=== PATIENT | female | born 1985 | race African-American/Black ===

== ENCOUNTER 2023-10-12 10:54 | Outpatient (AMB) | payer OTHER, SELFPAY ==
--- NOTE | 2023-10-12 10:57 | A.OFFPC_ITS ---
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 Patient has concern for L ear hearing. Patient has concern for anxiety due to work/life stresses. Patient feels overall she is healthy. 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 Required: No Accompanied by: Self / Same As Patient Allergies No Known Allergies Allergy (Verified 10/12/23 11:23) Medication List - Last Reconciled 10/12/23 by STUART Porter sumatriptan succinate take 1 tab at onset of headache; if no relief, may repeat 1 tab after at least 2 hrs; max = 2 tabs/24 hrs PO topiramate (Topamax) 100 mg PO BEDTIME Tobacco use date assessed: 10/12/23 Dental Screening Dental Screen Date: 10/12/23 Did you have a dental visit in the last 12 months?: Yes Did you have a dental problem in the last 6 months where you did not have access to dental care?: No Was dental information given to patient?: Patient has dentist HPI HPI Comments History of Present Illness Details Debra 38 y/o F with RANCHO, migraine headaches Surgery: right rotator and bicep repair 2022, tubal ligation Health Maintenance: Pap UTD 2023 Mammo Reports UTD on vaccines, 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 Feels startled and overwhelmed. Affecting her memory. Never been on meds or counseling but open to this. c/o P[place]ENTA bilat, worse on L PFSH Medical History (Updated 10/12/23 @ 15:26 by STUART Porter) Lumbar disc disorder Fibromyalgia Migraine Surgical History (Updated 10/12/23 @ 11:46 by Masha Hawkins CMA) History of tubal ligation History of rotator cuff surgery Family History (Updated 10/12/23 @ 11:48 by Masha Hawkins CMA) Father Substance use disorder Mother Asthma Maternal Grandmother Hypertension Sister Asthma Social History (Updated 10/12/23 @ 11:17 by Masha Hawkins [facility]) Household Members: Family and Children Household Members Other:: 1 daughter, 1 son, mother, 3 dogs Housing: House Are you a primary child care lead teacher to a significant other at home: No Do you presently have visiting nurse or other home services: No Alcohol intake: current Alcohol intake frequency: holidays/special occasions only Patient Tobacco Use Status: Former Tobacco user Cigarette Packs Per Day: 1 Years Smoked: 16 e-Cigarette/Vaping Use: Currently Using service: No Current occupational status: employed Current occupational exposures/hazards: No Sexual orientation: Straight/Heterosexual Gender identity: Female Cognitive needs: Yes (concern for memory) Hearing needs: Yes (L ear hearing concern) Vision needs: No Questionnaire PHQ-9 Over the last 2 weeks, how often have you been bothered by any of the following problems? 1. Little interest or pleasure in doing things: several days 2. Feeling down, depressed, or hopeless: several days 3. Trouble falling or staying asleep, or sleeping too much: not at all 4. Feeling tired or having little energy: several days 5. Poor appetite or overeating: not at all 6. Feeling bad about yourself - or that you are a failure or have let yourself or your family down: more than half the days 7. Trouble concentrating on things, such as reading the newspaper or watching television: not at all 8. Moving or speaking so slowly that other people could have noticed. Or the opposite - being so fidgety or restless that you have been moving around a lot more than usual: not at all 9. Thoughts that you would be better off or of hurting yourself in some way: not at all Total score: 5 Depression Screening Interpretation: Negative Depression Screening Done: Yes 52815 - PHQ-9 Billing: Yes Source: Developed by Drs. Kalen Arredondo, Florence Lebron, Adrian Shook and colleagues, with an educational brian from [employer]. Thrive Questionnaire Date Thrive assessed: 10/12/23 I am a: Patient What is your living situation today?: I have a steady place to live Within the past 12 months, did the food you bought not last and you didn't have the money to get more?: Never true Within the past 12 months, did you worry whether your food would run out before you got money to buy more?: Never true Do you have trouble paying for medicines?: No Do you have trouble getting transportation to medical appointments?: No Do you have trouble paying your heating and electricity bill?: No Do you have trouble taking care of your child, family member or friend?: No Do you have trouble with day-to-day activities such as bathing, preparing meals, shopping, managing finances, etc.?: No Are you currently unemployed and looking for a job?: No Are you interested in more education?: No Please select the resources that you would like help with: None Currently or been in a relationship where the following occur: no concerns reported THRIVE Score: 0 AUDIT C Alcohol Use Questionnaire (AUDIT-C) 1. How often do you have a drink containing alcohol?: Never 3. How often do you have six or more drinks on one occasion?: Never Total Score: 0 Score Reviewed/Action Taken: Yes RANCHO-7 AMB Questionnaire RANCHO-7 Date RANCHO - 7 assessed: 10/12/23 Feeling nervous, anxious, or on edge: 2 = More than half the days Not being able to stop or control worryin = More than half the days Worrying too much about different things: 2 = More than half the days Trouble relaxin = More than half the days Being so restless that it is hard to sit still: 1 = Several days Becoming easily annoyed or irritable: 2 = More than half the days Feeling afraid as if something awful might happen: 1 = Several days Total RANCHO-7 score (0-4 normal; 5-9 mild; 10-14 moderate; 15-21 severe): 12 Source: Developed by Drs. Kalen Arredondo, Florence Lebron, Adrian Shook and colleagues, with an educational brian from [employer]. RANCHO-7 Assessment Billing RANCHO-7 Assessment Tool: RANCHO-7 Assessment 54095 Review of Systems Const Details: Constitutional: Denies fever. Skin: Denies rash. Eye: Denies eye pain. ENMT: Denies sore throat and nasal congestion. Respiratory: Denies shortness of breath and cough. Gastrointestinal: Denies nausea, vomiting or abdominal pain. Cardiovascular: Denies chest pain and syncope. Genitourinary: Denies dysuria. Musculoskeletal: Denies back pain and extremity pain. Neurologic: Denies headaches, confusion, and weakness. Psychiatric: Denies suicidal thoughts and substance abuse. Allergy/ Immunologic: Denies impaired immunity. Physical exam (Primary Care) Vital Signs: Last Vital Signs Temp 98.1 F 10/12/23 11:04 Pulse 86 10/12/23 11:04 Resp 14 10/12/23 11:04 BP 110/68 10/12/23 11:04 Pulse Ox 98 10/12/23 11:04 Oxygen Delivery Method Room Air 10/12/23 11:04 BMI result Body Mass Index 33.1 BMI Assessment/Plan discussion: High BMI High, discussed plan: lifestyle Tobacco/Smoking Status: Tobacco use Status Tobacco use date assessed 10/12/23 10/12/23 11:19 Patient Tobacco Use Status Former Tobacco user 10/12/23 11:19 e-Cigarette/Vaping Use Currently Using 10/12/23 11:19 PHQ-9: PHQ-9 Score PHQ-9: Total score 5 10/12/23 11:42 Depression Screening Interpretation: Negative Thrive Assessment: Date of Thrive Assessment Date Thrive assessed 10/12/23 10/12/23 11:19 Currently or been in a relationship where the following occur: no concerns reported Const Other: General: Well developed, well nourished, in no acute distress. Appears stated age. Head: Normocephalic, atraumatic. Eyes: Pupils are equal, round and reactive to light and accommodation. Conjunctivae are clear. Vision grossly normal. Ears: TMs clear AU, EACS WNL Nose: Patent, without discharge. Mouth: There are no ulcers or lesions noted. No inflammation, no post nasal drip, no plaques nor exudates. Neck: Supple, no adenopathy or thyromegaly. Lungs: Clear to auscultation bilaterally. No rales, rhonchi or wheeze noted. Good air flow in all carrero. Heart: Regular rate and rhythm. No murmurs, click, rubs or gallops are noted. Abdomen: Bowel sounds present in all quadrants. The abdomen is soft, nontender, with no masses or organomegaly noted. No hernias are noted. Musculoskeletal: Joints are nontender, without swelling, redness, or effusions. Range of motion is observed to be normal. Pulses: Peripheral pulses are equal and palpable bilaterally. Extremities: No clubbing, cyanosis nor edema is noted. Neurologic: Gait and station normal. Cranial Nerves 2-12 intact. Motor strength grossly symmetrical and intact. No sensory loss. Balance normal. Skin: No rashes, ulcers, or lesions noted. Turgor is good. Skin color is good. Hair and nails are without abnormalities. Psych: Normal eye contact, affect and mood appropriate, and normal interactions. Patient is alert and appropriate to context. Assessment and Plan Assessment & Plan (1) Encounter for general adult medical examination without abnormal findings: Code(s): Z00.00 - Encounter for general adult medical examination without abnormal findings (2) Laboratory exam ordered as part of routine general medical examination: Code(s): Z00.00 - Encounter for general adult medical examination without abnormal findings (3) RANCHO (generalized anxiety disorder): Comment: start lexapro 5 mg po QD x 2 weeks then increase to 10mg QD FU in 6 weeks to assess effectiveness Referred to counseling Code(s): F41.1 - Generalized anxiety disorder (4) Hearing loss: Comment: refer to audio for hearing eval Code(s): H91.90 - Unspecified hearing loss, unspecified ear Qualifiers: Hearing loss type: other Laterality: bilateral Qualified Code(s): H91.8X3 - Other specified hearing loss, bilateral Orders: Orders MM tomosynthesis screening BI Today Z12.31 - Encounter for screening mammogram for malignant neoplasm of breast Hemoglobin A1c Today F41.1 - Generalized anxiety disorder, Z00.00 - Encounter for general adult medical examination without abnormal findings LDL Cholesterol Direct Today F41.1 - Generalized anxiety disorder, Z00.00 - Encounter for general adult medical examination without abnormal findings Microalbumin, Random (w Creat) Today F41.1 - Generalized anxiety disorder, Z00.00 - Encounter for general adult medical examination without abnormal findings TSH reflex Free T4 Today F41.1 - Generalized anxiety disorder, Z00.00 - Encounter for general adult medical examination without abnormal findings Vitamin D 1,25 dihydroxy Today F41.1 - Generalized anxiety disorder, Z00.00 - Encounter for general adult medical examination without abnormal findings Vitamin B12 and Folate Today F41.1 - Generalized anxiety disorder, Z00.00 - Encounter for general adult medical examination without abnormal findings IRON PROFILE Today F41.1 - Generalized anxiety disorder, Z00.00 - Encounter for general adult medical examination without abnormal findings Comprehensive Met. Panel Today F41.1 - Generalized anxiety disorder, Z00.00 - Encounter for general adult medical examination without abnormal findings Complete Blood Count no Diff Today F41.1 - Generalized anxiety disorder, Z00.00 - Encounter for general adult medical examination without abnormal findings Referrals Counseling Referral F41.1 - Generalized anxiety disorder Audiology Referral H91.90 - Unspecified hearing loss, unspecified ear Patient Instructions: RTO in 6 weeks to f/u on lexapro start for RANCHO. Health screenings for women ages 18 to 39 You should visit your health care provider from time to time, even if you are healthy. The purpose of these visits is to: Screen for medical issues Assess your risk for future medical problems Encourage a healthy lifestyle Update vaccinations and other preventive care services Help you get to know your provider in case of an illness Information Even if you feel fine, you should still see your provider for regular checkups. These visits can help you avoid problems in the future. For example, the only way to find out if you have high blood pressure is to have it checked regularly. High blood sugar and high cholesterol levels also may not have any symptoms in the early stages. A simple blood test can check for these conditions. There are specific times when you should see your provider or receive specific health screenings. The [place] Preventive Services Task Force publishes a list of recommended screenings. Below are screening guidelines for women ages 18 to 39. BLOOD PRESSURE SCREENING Your blood pressure should be checked at least once every 3 to 5 years if: Your blood pressure is in the normal range (top number less than 120 mm Hg and bottom number less than 80 mm Hg) You don't have risk factors for high blood pressure Ask your provider if you need your blood pressure checked more often if: The top number is 120 to 129 mm Hg or the bottom number is 70 to 79 mm Hg You have diabetes, heart disease, kidney problems, are overweight, or have certain other health conditions You have a first-degree relative with high blood pressure You are Black You had high blood pressure during a If the top number is 130 mm Hg or greater or the bottom number is 80 mm Hg or greater, this is considered stage 1 hypertension. Schedule an appointment with your provider to learn how you can reduce your blood pressure. Watch for blood pressure screenings in your area. Ask your provider if you can stop in to have your blood pressure checked. BREAST CANCER SCREENING Experts do not agree about the benefits of breast self-exams in finding breast cancer or saving lives. Talk to your provider about what is best for you. A screening mammogram is not recommended for most women under age 40. Your provider may discuss and recommend mammograms, MRI scans, or ultrasounds if you have an increased risk for breast cancer, such as: A mother or sister who had breast cancer at a young age (most often starting screening earlier than the age the close relative was diagnosed) You carry a high-risk genetic marker CERVICAL CANCER SCREENING Cervical cancer screening should start at age 21 years unless your provider advises otherwise. After the first test: Women ages 21 through 29 should have a Pap test every 3 years. Exoprts do not agree on whether HPV testing is recommended for this age group. Women ages 30 through 65 should be screened with either a Pap test every 3 years or the HPV test every 5 years or both tests every 5 years (called cotesting ). Women who have been treated for precancer (cervical dysplasia) should continue to have Pap tests for 20 years after treatment or until age 65, whichever is longer. If you have had your uterus and cervix removed (total hysterectomy), and you have not been diagnosed with cervical cancer or precancer (high grade cervical neoplasia), you do not need cervical cancer screening. CHOLESTEROL SCREENING Cholesterol screening should begin at: Age 45 for women with no known risk factors for coronary heart disease Age 20 for women with known risk factors for coronary heart disease Repeat cholesterol screening should take place: Every 5 years for women with normal cholesterol levels More often if changes occur in lifestyle (including weight gain and diet) More often if you have diabetes, heart disease, kidney problems, or certain other conditions DIABETES SCREENING You should be screened for diabetes starting at age 35 and then repeated every 3 years if you have no risk factors for diabetes. Screening may need to start earlier and be repeated more often if you have other risk factors for diabetes, such as: You have a first degree relative with diabetes. You are overweight or have obesity. You have high blood pressure, prediabetes, or a history of heart disease. Screening for diabetes should be done if you are planning to become and you are overweight and have other risk factors such as high blood pressure. DENTAL EXAM Go to the dentist once or twice every year for an exam and cleaning. Your dentist will evaluate if you need more frequent visits. EYE EXAM Have an eye exam every 5 to 10 years before age 40. If you have vision problems, have an eye exam every 2 years or more often if recommended by your provider. You should have an eye exam that includes an examination of your retina (back of your eye) at least every year if you have diabetes. IMMUNIZATIONS Commonly needed vaccines include: Flu shot: get one every year. COVID-19 vaccine: ask your provider what is best for you. Tetanus-diphtheria and acellular pertussis (Tdap) vaccine: have one at or after age 19 as one of your tetanus-diphtheria vaccines if you did not receive it as an adolescent. Tetanus-diphtheria: have a booster (or Tdap) every 10 years. Varicella vaccine: receive 2 doses if you never had chickenpox or the varicella vaccine. Hepatitis B vaccine: receive 2, 3, or 4 doses, depending on your exact circumstances. Measles, mumps, and rubella (MMR) vaccine: receive 1 to 2 doses if you are not already immune to MMR. Your provider can tell you if you are immune. Ask your provider about the human papillomavirus (HPV) vaccine if: You have not received the HPV vaccine in the past You have not completed the full vaccine series (you should catch up on this shot) Ask your provider if you should receive other immunizations if you have certain health problems that increase your risk for some diseases such as pneumonia. INFECTIOUS DISEASE SCREENING Women who are sexually active should be screened for chlamydia and gonorrhea up until age 25. Women 25 years and older should be screened for chlamydia and gonorrhea if at high risk. Screening for hepatitis C: All adults ages 18 to 79 should get a one-time test for hepatitis C. people should be screened at every . Screening for human immunodeficiency virus (HIV): All people ages 15 to 65 should get a one-time test for HIV. Depending on your lifestyle and medical history, you may also need to be screened for infections such as syphilis and HIV, as well as other infections. PHYSICAL EXAM All adults should visit their provider from time to time, even if they are healthy. The purpose of these visits is to: Screen for disease Assess your risk of future medical problems Encourage a healthy lifestyle Update your vaccinations and other preventive care services Maintain a relationship with a provider in case of an illness Your height, weight, and BMI should be checked at every exam. During your exam, your provider may ask you about: Depression and anxiety Diet and exercise Alcohol and tobacco use Safety issues, such as using seat belts, smoke detectors, and intimate partner violence Your medicines and risk for interactions SKIN SELF-EXAM Your provider may check your skin for signs of skin cancer, especially if you're at high risk, such as if you: Have had skin cancer before Have close relatives with skin cancer Have a weakened immune system OTHER SCREENING Talk with your provider about colon cancer screening if you have a strong family history of colon cancer or polyps, or if you have had inflammatory bowel disease or polyps yourself. Routine bone density screening of women under 40 is not recommended. Coding Level of Care Code New Pt Prev Care 18-39yr([id number] Diagnoses Encounter for general adult medical examination without abnormal findings Z00.00 Laboratory exam ordered as part of routine general medical examination Z00.00 RANCHO (generalized anxiety disorder) F41.1 Other specified hearing loss of both ears H91.8X3 Hearing loss type: other Laterality: bilateral Additional Codes RANCHO-7 Assessment Billing - RANCHO-7 Assessment Tool: RANCHO-7 Assessment 49501 ([id number])
[2023-10-12 11:04] VITALS: BP 110/68; PULSE 86; RESP 14; TEMP 36.7; O2SAT 98; BMI 33.1
== END 2023-10-12 11:51 | disposition home or self-care (01) ==
PROVIDERS: PCP Nurse Practitioner Family; Visit Provider Nurse Practitioner Family
DX: Z00.00 Encounter for general adult medical examination without abnormal findings (principal); F41.1 Generalized anxiety disorder; H91.8X3 Other specified hearing loss, bilateral
CPT/HCPCS: 99385

== ENCOUNTER 2023-10-12 11:40 | Outpatient (REF) | payer OTHER, SELFPAY ==
[2023-10-12 14:40] LABS: Hematocrit 41.4 % (37.0-47.0); Hemoglobin 13.3 g/dl (12.0-16.0); Mean Corpuscular HGB Conc 32.1 g/dl (31.0-35.0); Mean Corpuscular Hemoglobin 26.5 pg (27.0-33.0); Mean Corpuscular Volume 82.6 fL (80.0-98.0); Mean Platelet Volume 10.3 fL (9.4-12.3); Platelet Count 237 X10*3/uL (160-400); Red Blood Count 5.01 X10*6/uL (4.20-5.50); Red Cell Distribution Width 13.7 % (11.0-16.0)
[2023-10-12 14:46] LABS: Estimated Average Glucose 108 mg/dL; Hemoglobin A1c % 5.4 % (<6.0)
[2023-10-12 15:10] LABS: Creatinine Urine 72.88 mg/dL; Microalbumin Urine < 5.0 mg/L
[2023-10-12 15:21] LABS: Alanine Aminotransferase 24 U/L (0-31); Albumin Level 4.3 g/dL (3.5-5.0); Alkaline Phosphatase 44 U/L (39-117); Anion Gap 11 (12-20); Aspartate Amino Transferase 18 U/L (5-31); Bilirubin Total 0.3 mg/dL (0.0-1.0); Blood Urea Nitrogen 14 mg/dL (9-16); Calcium 9.3 mg/dL (8.4-10.2); Carbon Dioxide 17 mmol/L (22-29); Chloride 111 mmol/L (96-108); Estimated Glomerular Filt Rate > 60; Glucose Random 79 mg/dL (60-115); Iron 121 mcg/dL (30-160); Percent Iron Saturation 51 % (15-50); Sodium 135 mmol/L (135-145); Total Iron Binding Capacity 235 mcg/dL (228-428); Total Protein 8.2 g/dL (6.5-8.0); Unsaturated Iron Binding 114 ug/dL
[2023-10-12 15:51] LABS: TSH reflex Free T4 1.28 uIU/mL (0.32-4.0)
[2023-10-12 16:02] LABS: Folate 8.7 ng/mL (> or = 4.0); Vitamin B12 483 pg/mL (200-900)
[2023-10-13 12:19] LABS: LDL Cholesterol Direct 127 mg/dL (<100)
[2023-10-15 13:04] LABS: VITAMIN D (1,25 OH) D3 65 pg/mL; Vit D (1,25-Dihydroxy) Total 65 pg/mL (18-72); Vitamin D (1,25 OH) D2 <8 pg/mL
== END 2023-10-12 11:41 | disposition home or self-care (01) ==
LOC: HO.WFDLDS 11:40
PROVIDERS: Visit Provider Nurse Practitioner Family
DX: F41.1 Generalized anxiety disorder (principal); Z00.00 Encounter for general adult medical examination without abnormal findings
CPT/HCPCS: 36415; 80053; 82043; 82570; 82607; 82652; 82746; 83036; 83540; 83721; 84443; 85027

== ENCOUNTER 2024-02-22 08:22 | Outpatient (REF) | payer OTHER, SELFPAY | END 2024-02-22 08:23 | disposition home or self-care (01) | LOC: HO.SH 08:22 | PROVIDERS: Visit Provider Nurse Practitioner Family | DX: Z01.118 Encounter for examination of ears and hearing with other abnormal findings (principal); H90.3 Sensorineural hearing loss, bilateral | CPT/HCPCS: 92557; 92567 ==

== ENCOUNTER 2024-03-01 09:39 | Outpatient (AMB) | payer OTHER, SELFPAY ==
--- NOTE | 2024-03-01 09:55 | MHC.PC.OV ---
Vital Signs 03/01/24 09:57 Height 5 ft 5 in Weight 207 lb 2 oz BMI 34.5 BP 118/70 Blood Pressure Location Rt brachial Position Sitting Respiration 14 Pulse 75 Pulse Source Pulse Oximeter Pulse Oximetry (%) 98 Oxygen Delivery Method Room Air Intake Visit Reasons: follow up meds Intake Note: follow up on meds Allergies No Known Allergies Allergy (Verified 03/01/24 10:00) Medication List - Last Reconciled 03/01/24 by Katina Arthur, [facility]- escitalopram oxalate (Lexapro) 10 mg PO DAILY sumatriptan succinate take 1 tab at onset of headache; if no relief, may repeat 1 tab after at least 2 hrs; max = 2 tabs/24 hrs PO topiramate (Topamax) 100 mg PO BEDTIME Tobacco use date assessed: 10/12/23 Dental Screening Dental Screen Date: 10/12/23 HPI HPI Comments History of Present Illness Details Debra 38 y/o F with RANCHO, migraine headaches, [place] bilat Surgery: right rotator and bicep repair 2022, tubal ligation Health Maintenance: Pap UTD 2023 Mammo first one pending 03/2024 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 Did use the lexapro as directed, up tp 10mg. This helped. However, she has been w/o for 1 month, unable to get a refill Reports things at home w/ dtr are better. Went for hearing exam, needs hearing aides. Testing completed 02/22/24. She will need a referral to an ENT but he is unsure who she would like to use at the current time. Would like STD testing , denies active sx. Would like med for wt loss. Has never been on wellbutrin. Has not heard about the counseling referral. Reviewed labs with her, WNL except LDL 127 Exam Awake alert NAD RRR LS CTAB Mood and affect appropriate Self swabbed for BV Plan STD testing performed today per request. Brief intervention with the community navigator to work on getting a counselor Stop Lexapro as you have been without it for 1 month Start Wellbutrin XL 150 mg p.o. 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 While every effort has been made to ensure accuracy in agency appointments supervisor, still errors may have been included Sometimes, these errors may affect the content or meaning of the given sentence . Total time spent caring for the patient today was 30 minutes. This includes time spent before the visit reviewing the chart, time spent during the visit, and time spent after the visit on documentation [facility] Medical History (Updated 03/01/24 @ 15:32 by Katina Arthur, [facility]) Lumbar disc disorder Fibromyalgia Migraine Surgical History (Updated 10/12/23 @ 11:46 by Masha Hawkins CMA) History of tubal ligation History of rotator cuff surgery Family History (Updated 10/12/23 @ 11:48 by Masha Hawkins CMA) Father Substance use disorder Mother Asthma Maternal Grandmother Hypertension Sister Asthma Social History (Updated 10/12/23 @ 11:17 by Masha Hawkins CMA) Household Members: Family and Children Household Members Other:: 1 daughter, 1 son, mother, 3 dogs Housing: House Are you a primary student career development specialist to a significant other at home: No Do you presently have visiting nurse or other home services: No 75 years or older and lives alone: No Alcohol intake: current Alcohol intake frequency: holidays/special occasions only Patient Tobacco Use Status: Former Tobacco user Cigarette Packs Per Day: 1 Years Smoked: 16 e-Cigarette/Vaping Use: Currently Using service: No Current occupational status: employed Current occupational exposures/hazards: No Sexual orientation: Straight/Heterosexual Gender identity: Female Cognitive needs: Yes (concern for memory) Hearing needs: Yes (L ear hearing concern) Vision needs: No Questionnaire Thrive Questionnaire Date Thrive assessed: 10/12/23 AUDIT C Alcohol Use Questionnaire (AUDIT-C) 2. How many drinks containing alcohol do you have on a typical day when you are drinking?: 1 or 2 3. How often do you have six or more drinks on one occasion?: Never Total Score: 0 RANCHO-7 AMB Questionnaire RANCHO-7 Date RANCHO - 7 assessed: 10/12/23 Source: Developed by Drs. Kalen Arredondo, Florence Lebron, Adrian Shook and colleagues, with an educational brian from [employer]. Physical exam (Primary Care) Vital Signs: Last Vital Signs Pulse 75 03/01/24 09:57 Resp 14 03/01/24 09:57 BP 118/70 03/01/24 09:57 Pulse Ox 98 03/01/24 09:57 Oxygen Delivery Method Room Air 03/01/24 09:57 BMI result Body Mass Index 34.5 BMI Assessment/Plan discussion: High BMI High, discussed plan: lifestyle Tobacco/Smoking Status: Tobacco use Status Tobacco use date assessed 10/12/23 03/01/24 09:59 Patient Tobacco Use Status Former Tobacco user 03/01/24 09:59 e-Cigarette/Vaping Use Currently Using 03/01/24 09:59 Thrive Assessment: Date of Thrive Assessment Date Thrive assessed 10/12/23 03/01/24 09:59 Assessment and Plan Assessment & Plan (1) RANCHO (generalized anxiety disorder): Code(s): F41.1 - Generalized anxiety disorder (2) Exposure to STD: Code(s): Z20.2 - Contact with and (suspected) exposure to infections with a predominantly sexual mode of transmission (3) Hearing loss: Comment: audiogram 02/22/2024 Code(s): H91.90 - Unspecified hearing loss, unspecified ear Qualifiers: Hearing loss type: sensorineural Laterality: bilateral Qualified Code(s): H90.3 - Sensorineural hearing loss, bilateral (4) Obesity (BMI 30.0-34.9): Code(s): E66.9 - Obesity, unspecified Orders: Orders Bacterial Vaginosis Panel Today Z20.2 - Contact with and (suspected) exposure to infections with a predominantly sexual mode of transmission HIV Ab/Ag Today Z20.2 - Contact with and (suspected) exposure to infections with a predominantly sexual mode of transmission CT NG by PCR Today Z20.2 - Contact with and (suspected) exposure to infections with a predominantly sexual mode of transmission Syphilis Screen Today Z20.2 - Contact with and (suspected) exposure to infections with a predominantly sexual mode of transmission Medications: New bupropion HCl XL (Wellbutrin XL) 150 mg PO QAM 30 tabs 1RF Discontinued escitalopram oxalate (Lexapro) needs to schedule appt w/ me for any addl refills. Discontinued Reason: Patient no longer taking 10 mg PO DAILY 30 tabs 0RF Patient Instructions: Please note: In order to enroll in the [facility] Patient Portal, we need to have your email address on file in your electronic medical record. The email address needs to be specific for one person (yourself) in order for your Portal enrollment to be successful. You can update your email address in person with our Registration staff when you are registering for a hospital visit. Otherwise, you will need to come to the Health Information Management (Medical Records) Department at [facility]. We are open from Tuesday ? Tuesday from 7:30 a.m. ? 4:30 p.m. You will be required to present a photo id. Once you have successfully enrolled in the Patient Portal, you will receive a one-time user id and password for the Portal, sent to your email address. This will allow you to log into the Patient Portal within 99 hrs and reset your own logon id and password, and define personal security questions. Once your permanent login and password have been set, you can log into the [facility] Patient Portal at any time via the blue button above or from the Portal Logon button on any page of the [facility] website. Coding Level of Care Code Est Pt Level 4 (17935) Complex EM visit Add On G2211 Diagnoses RANCHO (generalized anxiety disorder) F41.1 Exposure to STD Z20.2 Sensorineural hearing loss (SNHL) of both ears H90.3 Hearing loss type: sensorineural Laterality: bilateral Obesity (BMI 30.0-34.9) E66.9
[2024-03-01 09:57] VITALS: BP 118/70; PULSE 75; RESP 14; O2SAT 98; BMI 34.5
== END 2024-03-01 10:28 | disposition home or self-care (01) ==
PROVIDERS: PCP Nurse Practitioner Family; Visit Provider Nurse Practitioner Family
DX: H90.3 Sensorineural hearing loss, bilateral (principal); F41.1 Generalized anxiety disorder; E66.9 Obesity, unspecified; Z68.34 Body mass index [BMI] 34.0-34.9, adult; Z20.2 Contact with and (suspected) exposure to infections with a predominantly sexual mode of transmission

== ENCOUNTER 2024-03-01 09:39 | Outpatient (REF) | payer OTHER, SELFPAY ==
[2024-03-01 15:06] LABS: Bacterial Vaginosis PCR NEGATIVE (Negative); Candida Group PCR DETECTED (Not Detect); Candida glab krusei PCR NOT DETECTED (Not Detect); Trichomonas vaginalis PCR NOT DETECTED (Not Detect)
[2024-03-02 08:13] LABS: Syphilis Screen Nonreactive (Nonreactive)
[2024-03-02 08:20] LABS: HIV AB/AG Nonreactive (Nonreactive); HIV Num 1 0.05 S/CO (0.00-0.99)
== END 2024-03-01 09:40 | disposition home or self-care (01) ==
LOC: HO.LAB 09:39
PROVIDERS: PCP Nurse Practitioner Family; Visit Provider Nurse Practitioner Family
DX: F41.1 Generalized anxiety disorder (principal); H90.3 Sensorineural hearing loss, bilateral; E66.9 Obesity, unspecified; Z51.81 Encounter for therapeutic drug level monitoring; Z20.2 Contact with and (suspected) exposure to infections with a predominantly sexual mode of transmission; Z87.891 Personal history of nicotine dependence
CPT/HCPCS: 0352U; 36415; 86780; 87389

== ENCOUNTER 2024-03-28 09:14 | Outpatient (AMB) | payer OTHER, SELFPAY ==
--- NOTE | 2024-03-28 09:18 | A.OFFPC_ITS ---
Vital Signs 03/28/24 09:20 Height 5 ft 5 in Weight 210 lb 2 oz BMI 35.0 BP 120/72 Blood Pressure Location Rt brachial Position Sitting Respiration 14 Pulse 78 Pulse Source Pulse Oximeter Pulse Oximetry (%) 98 Oxygen Delivery Method Room Air Intake Visit Reasons: 4 weeks 30 min fu Wellbutrin start, wt loss RANCHO Intake Note: follow up Allergies No Known Allergies Allergy (Verified 03/28/24 09:20) Medication List - Last Reconciled 03/28/24 by MALCOLM Porter bupropion HCl XL (Wellbutrin XL) 150 mg PO QAM sumatriptan succinate take 1 tab at onset of headache; if no relief, may repeat 1 tab after at least 2 hrs; max = 2 tabs/24 hrs PO topiramate (Topamax) 100 mg PO BEDTIME Tobacco use date assessed: 10/12/23 Dental Screening Dental Screen Date: 10/12/23 HPI HPI Comments History of Present Illness Details Debra 38 y/o F with RANCHO, migraine headaches, H [place], borderline cholesterol, obesity Surgery: right rotator and bicep repair 2022, tubal ligation Health Maintenance: Pap UTD 2023 Mammo first one pending 03/2024 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 Declined Flu Exam Awake alert NAD RRR LS CTAB Mood and affect appropriate Plan Increase wellbutrin xl from 150mg to 300mg QAM FU with counseling Mammo scheduled Declined flu FU with ENT Return to the office in 4- 6 weeks to follow up on the Wellbutrin/RANCHO/Wt, sooner as needed This note is constructed using voice recognition software. While every effort has been made to ensure accuracy in furnace repair mechanic, still errors may have been included Sometimes, these errors may affect the content or meaning of the given sentence . Total time spent caring for the patient today was 30 minutes. This includes time spent before the visit reviewing the chart, time spent during the visit, and time spent after the visit on documentation [facility] Medical History (Updated 03/28/24 @ 09:35 by Katina Arthur [facility]) Lumbar disc disorder Fibromyalgia Migraine Surgical History (Updated 10/12/23 @ 11:46 by Masha Hawkins CMA) History of tubal ligation History of rotator cuff surgery Family History (Updated 10/12/23 @ 11:48 by Masha Hawkins CMA) Father Substance use disorder Mother Asthma Maternal Grandmother Hypertension Sister Asthma Social History (Updated 10/12/23 @ 11:17 by Masha Hawkins CMA) Household Members: Family and Children Household Members Other:: 1 daughter, 1 son, mother, 3 dogs Housing: House Are you a primary health care facilities inspector to a significant other at home: No Do you presently have visiting nurse or other home services: No 75 years or older and lives alone: No Alcohol intake: current Alcohol intake frequency: holidays/special occasions only Patient Tobacco Use Status: Former Tobacco user Cigarette Packs Per Day: 1 Years Smoked: 16 e-Cigarette/Vaping Use: Currently Using service: No Current occupational status: employed Current occupational exposures/hazards: No Sexual orientation: Straight/Heterosexual Gender identity: Female Cognitive needs: Yes (concern for memory) Hearing needs: Yes (L ear hearing concern) Vision needs: No Questionnaire PHQ-9 Over the last 2 weeks, how often have you been bothered by any of the following problems? 1. Little interest or pleasure in doing things: several days 2. Feeling down, depressed, or hopeless: not at all 3. Trouble falling or staying asleep, or sleeping too much: several days 4. Feeling tired or having little energy: more than half the days 5. Poor appetite or overeating: more than half the days 6. Feeling bad about yourself - or that you are a failure or have let yourself or your family down: not at all 7. Trouble concentrating on things, such as reading the newspaper or watching television: several days 8. Moving or speaking so slowly that other people could have noticed. Or the opposite - being so fidgety or restless that you have been moving around a lot more than usual: not at all 9. Thoughts that you would be better off or of hurting yourself in some way: not at all Total score: 7 10775 - PHQ-9 Billing: Yes Source: Developed by Drs. Kalen Arredondo, Florence Lebron, Adrian Shook and colleagues, with an educational brian from [employer]. Thrive Questionnaire Date Thrive assessed: 10/12/23 I am a: Patient What is your living situation today?: I have a steady place to live Within the past 12 months, did the food you bought not last and you didn't have the money to get more?: Never true Within the past 12 months, did you worry whether your food would run out before you got money to buy more?: Never true Do you have trouble paying for medicines?: No Do you have trouble getting transportation to medical appointments?: No Do you have trouble paying your heating and electricity bill?: No Do you have trouble taking care of your child, family member or friend?: No Do you have trouble with day-to-day activities such as bathing, preparing meals, shopping, managing finances, etc.?: No Are you currently unemployed and looking for a job?: No Are you interested in more education?: No Please select the resources that you would like help with: None Currently or been in a relationship where the following occur: No concerns reported THRIVE Score: 0 AUDIT C Alcohol Use Questionnaire (AUDIT-C) 1. How often do you have a drink containing alcohol?: Monthly or less Total Score: 1 RANCHO-7 AMB Questionnaire RANCHO-7 Date RANCHO - 7 assessed: 03/28/24 Feeling nervous, anxious, or on edge: 1 = Several days Not being able to stop or control worryin = Several days Worrying too much about different things: 1 = Several days Trouble relaxin = Several days Being so restless that it is hard to sit still: 0 = Not at all Becoming easily annoyed or irritable: 1 = Several days Feeling afraid as if something awful might happen: 0 = Not at all Total RANCHO-7 score (0-4 normal; 5-9 mild; 10-14 moderate; 15-21 severe): 5 Source: Developed by Drs. Kalen LFlorence Gonzalez Kurt Kroenke and colleagues, with an educational brian from [employer]. RANCHO-7 Assessment Billing RANCHO-7 Assessment Tool: RANCHO-7 Assessment 98972 Physical exam (Primary Care) Vital Signs: Last Vital Signs Pulse 78 03/28/24 09:20 Resp 14 03/28/24 09:20 BP 120/72 03/28/24 09:20 Pulse Ox 98 03/28/24 09:20 Oxygen Delivery Method Room Air 03/28/24 09:20 BMI result Body Mass Index 35.0 BMI Assessment/Plan discussion: High BMI High, discussed plan: weight reduction, dietary and physical activity Tobacco/Smoking Status: Tobacco use Status Tobacco use date assessed 10/12/23 03/28/24 09:19 Patient Tobacco Use Status Former Tobacco user 03/28/24 09:19 e-Cigarette/Vaping Use Currently Using 03/28/24 09:19 PHQ-9: PHQ-9 Score PHQ-9: Total score 7 03/28/24 09:22 Thrive Assessment: Date of Thrive Assessment Date Thrive assessed 10/12/23 03/28/24 09:19 Currently or been in a relationship where the following occur: No concerns reported Coding Level of Care Code Est Pt Level 4 (22893) Complex EM visit Add On G2211 Diagnoses RANCHO (generalized anxiety disorder) F41.1 Sensorineural hearing loss (SNHL) of both ears H90.3 Hearing loss type: sensorineural Laterality: bilateral Obesity (BMI 35.0-39.9 without comorbidity) E66.9 Body mass index [BMI] 35.0-35.9, adult Z68.35 Additional Codes RANCHO-7 Assessment Billing - RANCHO-7 Assessment Tool: RANCHO-7 Assessment [id number] ([id number]) Assessment & Plan Assessment & Plan (1) RANCHO (generalized anxiety disorder): Code(s): F41.1 - Generalized anxiety disorder Category: Medical Plan: . (2) Hearing loss: Comment: audiogram 02/22/2024 Code(s): H91.90 - Unspecified hearing loss, unspecified ear Category: Medical Qualifiers: Hearing loss type: sensorineural Laterality: bilateral Qualified Code(s): H90.3 - Sensorineural hearing loss, bilateral Plan: . (3) Obesity (BMI 35.0-39.9 without comorbidity): Code(s): E66.9 - Obesity, unspecified Category: Medical Plan: . (4) Body mass index [BMI] 35.0-35.9, adult: Code(s): Z68.35 - Body mass index [BMI] 35.0-35.9, adult Category: Medical Plan . Medications: New bupropion HCl XL (Wellbutrin XL) 300 mg PO QAM 30 tabs 1RF Discontinued bupropion HCl XL (Wellbutrin XL) Discontinued Reason: Doctor's Order 150 mg PO QAM 30 tabs 1RF
[2024-03-28 09:20] VITALS: BP 120/72; PULSE 78; RESP 14; O2SAT 98; BMI 35.0
== END 2024-03-28 09:35 | disposition home or self-care (01) ==
PROVIDERS: PCP Nurse Practitioner Family; Visit Provider Nurse Practitioner Family
DX: F41.1 Generalized anxiety disorder (principal); H90.3 Sensorineural hearing loss, bilateral; E66.9 Obesity, unspecified; Z68.35 Body mass index [BMI] 35.0-35.9, adult

== ENCOUNTER → 2024-03-28 09:14 | Outpatient (BNVA) | payer OTHER, SELFPAY | PROVIDERS: PCP Nurse Practitioner Family; Visit Provider Nurse Practitioner Family | DX: F41.1 Generalized anxiety disorder (principal); H90.3 Sensorineural hearing loss, bilateral; E66.9 Obesity, unspecified; Z68.35 Body mass index [BMI] 35.0-35.9, adult | CPT/HCPCS: 96127 ==

== ENCOUNTER 2024-04-10 12:31 | Outpatient (REF) | payer OTHER, SELFPAY ==
--- NOTE | ~2024-04-10 | MM_ITS ---
EXAMINATION: MM SCREENING DIGITAL BREAST TOMOSYNTHESIS, BILATERAL CLINICAL INFORMATION: Screening. Asymptomatic. COMPARISON: Mammography: Baseline. TECHNIQUE: Digital breast mammography with tomosynthesis is performed in both the craniocaudal and mediolateral oblique views along with computer-aided detection (CAD). FINDINGS: The breasts are heterogeneously dense, which may obscure small masses (ACR BI-RADS breast composition Category c). There are no significant masses, abnormal calcifications, or other abnormalities. MM/MM tomosynthesis screening BI IMPRESSION: No mammographic evidence of malignancy. ASSESSMENT: BI-RADS BI-RADS 1 - Negative RECOMMENDATION: Routine annual mammography screening. 1 year F/U This examination should not preclude the clinical evaluation of a suspicious palpable abnormality. This patient's information was entered into a reminder system with a target due date for their next mammogram. Electronically signed by: Ratna Carr DO 04/18/2024 10:45 AM AR[facility]UR
== END 2024-04-10 12:32 | disposition home or self-care (01) ==
LOC: HO.MAMMO 12:31
PROVIDERS: PCP Nurse Practitioner Family; Visit Provider Nurse Practitioner Family
DX: Z12.31 Encounter for screening mammogram for malignant neoplasm of breast (principal)
CPT/HCPCS: 77063; 77067

== ENCOUNTER → 2024-04-10 12:45 | Outpatient (BNV) | payer OTHER, SELFPAY | PROVIDERS: PCP Nurse Practitioner Family; Visit Provider Internal Medicine | DX: Z12.31 Encounter for screening mammogram for malignant neoplasm of breast (principal) | CPT/HCPCS: 77063; 77067 ==

== ENCOUNTER 2024-05-02 09:20 | Outpatient (REF) | payer OTHER, SELFPAY | END 2024-05-02 09:21 | disposition home or self-care (01) | LOC: HO.LNP 09:20 | PROVIDERS: PCP Nurse Practitioner Family; Visit Provider Nurse Practitioner Family | DX: Z13.89 Encounter for screening for other disorder (principal) ==

== ENCOUNTER 2024-05-02 09:20 | Outpatient (AMB) | payer OTHER, SELFPAY ==
--- NOTE | 2024-05-02 10:31 | AM.OFFWIN_ITS ---
Intake Vital Signs 05/02/24 10:37 Height 5 ft 5 in Weight 208 lb 4 oz BMI 34.7 BP 110/70 Blood Pressure Location Rt brachial Position Sitting Respiration 16 Pulse 91 Pulse Source Pulse Oximeter Temp 97.2 F Temp Source Temporal Artery Scan Pulse Oximetry (%) 100 Oxygen Delivery Method Room Air Intake Visit Reasons: est/ std testing Intake Note: patient here c/o STD Testing Patient Tobacco Use Status: Former Tobacco user Member Service Specialist Required: No Is last menstrual period known: Yes Last menstrual period: 04/15/24 Post menopausal: No Patient : No Allergies No Known Allergies Allergy (Verified 05/02/24 10:51) Medication List - Last Reconciled 05/02/24 by SOLOMON PorterP- bupropion HCl XL (Wellbutrin XL) 300 mg PO QAM metronidazole 500 mg PO BID sumatriptan succinate take 1 tab at onset of headache; if no relief, may repeat 1 tab after at least 2 hrs; max = 2 tabs/24 hrs PO topiramate (Topamax) 100 mg PO BEDTIME Do you need a note to return to daycare/school/sports/work: No HPI HPI Comments History of Present Illness0 Details History of Present Illness The patient is a 39-year-old female presenting with concerns regarding vaginal symptoms and possible sexually transmitted infections (STIs). The patient had a previous positive diagnosis of vaginal candidiasis in February, which was treated with oral fluconazole. Subsequent to the treatment, the patient reported improvement in symptoms. However, a week ago, the patient began experiencing vulvar inflammation with a burning sensation but no itching. 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 The patient underwent a mammogram recently, and the results were normal. She also had previous testing for syphilis via blood work that was negative at last visit. No prior testing for gonorrhea or chlamydia was completed. Review of Systems - Genitourinary: Reports vulvar inflamma tion and a burning sensation. Denies itching. Physical Exam Awake alert NAD Self swab for BV Urine for GC collected Results - Labs: Recent mammogram results indicat e normal findings. Report needed. Plan 1. Vaginal Candidiasis: Re-evaluate with swab testing to confirm current presence or absence of yeast infection post-treatment. 2. Bacterial Vaginosis: Confirm diagnosi s with swab testing; medication already prescribed allowing initiation if confirmed. 3. Possible Trichomoniasis and STI [place]: Conduct swab testing to include trichomoniasis and syphilis testing. Conduct urine test for gonorrhea and chlamydia as it was not performed during the last visit. Patient was informed and verbally consented to the use of an ambient scribe for clinic note documentation during this visit. Discussion Notes I discussed with the patient the different possible diagnoses regarding her symptoms, including recurrent vaginal candidiasis, bacterial vaginosis, and potential trichomoniasis. I mentioned the need for swab testing to determine the exact causative agent. I explained the importance of conducting a comprehensive STI screening, which includes trichomoniasis, syphilis, gonorrhea, and chlamydia due to the change in her symptoms. I reviewed the process for obtaining samples through self-swab and urine collection and explained laboratory procedures for specimen drop-off. Additionally, I confirmed the patient's [facility] pharmacy as the current location for prescriptions. Patient Instructions - Complete self-swab and urine collectio n as instructed for comprehensive STI testing. - Begin medication for bacterial vaginos is if confirmed by test results. - Follow up with the clinic next week as scheduled, routine - Continue annual mammograms, next 05/02 25 - Meds to be sent as approp based on res ults of STD testing - Reach out should symptoms persist or w orsen before the follow-up appointment. Total time spent caring for the patient today was 30 minutes. This includes time spent before the visit reviewing the chart, time spent during the visit, and time spent after the visit on documentation [facility] Medical History (Updated 03/28/24 @ 09:35 by MALCOLM Porter) Lumbar disc disorder Fibromyalgia Migraine Surgical History (Updated 10/12/23 @ 11:46 by Masha Hawkins CMA) History of tubal ligation History of rotator cuff surgery Family History (Updated 10/12/23 @ 11:48 by Masha Hawkins CMA) Father Substance use disorder Mother Asthma Maternal Grandmother Hypertension Sister Asthma Social History (Updated 10/12/23 @ 11:17 by Masha Hawkins CMA) Household Members: Family and Children Household Members Other:: 1 daughter, 1 son, mother, 3 dogs Housing: House Are you a primary critical care registered nurse to a significant other at home: No Do you presently have visiting nurse or other home services: No Alcohol intake: current Alcohol intake frequency: holidays/special occasions only Patient Tobacco Use Status: Former Tobacco user Cigarette Packs Per Day: 1 Years Smoked: 16 e-Cigarette/Vaping Use: Currently Using service: No Current occupational status: employed Current occupational exposures/hazards: No Sexual orientation: Straight/Heterosexual Gender identity: Female Cognitive needs: Yes (concern for memory) Hearing needs: Yes (L ear hearing concern) Vision needs: No Female Reproductive History Menstrual Date of last menstrual period: 04/15/24 Physical Exam Vital Signs: Last Vital Signs Temp 97.2 F 05/02/24 10:37 Pulse 91 05/02/24 10:37 Resp 16 05/02/24 10:37 BP 110/70 05/02/24 10:37 Pulse Ox 100 05/02/24 10:37 Oxygen Delivery Method Room Air 05/02/24 10:37 BMI result Body Mass Index 34.7 Assessment & Plan Assessment & Plan (1) Exposure to STD: Code(s): Z20.2 - Contact with and (suspected) exposure to infections with a predominantly sexual mode of transmission Plan . Orders: Orders Syphilis Screen Today Z11.3 - Encounter for screening for infections with a predominantly sexual mode of transmission Bacterial Vaginosis Panel Today Z11.3 - Encounter for screening for infections with a predominantly sexual mode of transmission HIV Ab/Ag Today Z11.3 - Encounter for screening for infections with a predominantly sexual mode of transmission CT NG by PCR Today Z11.3 - Encounter for screening for infections with a predominantly sexual mode of transmission Coding Level of Care Code Est Pt Level 4 (54957) Diagnoses Exposure to STD Z20.2
[2024-05-02 10:37] VITALS: BP 110/70; PULSE 91; RESP 16; TEMP 36.2; O2SAT 100; BMI 34.7
== END 2024-05-02 11:09 | disposition home or self-care (01) ==
LOC: HO.HMCWIW 09:20
PROVIDERS: PCP Nurse Practitioner Family; Visit Provider Nurse Practitioner Family
DX: Z20.2 Contact with and (suspected) exposure to infections with a predominantly sexual mode of transmission (principal)

== ENCOUNTER 2024-05-02 11:14 | Outpatient (REF) | payer OTHER, SELFPAY ==
[2024-05-03 03:56] LABS: Syphilis Screen Nonreactive (Nonreactive)
[2024-05-03 04:30] LABS: HIV AB/AG Nonreactive (Nonreactive); HIV Num 1 0.06 S/CO (0.00-0.99)
[2024-05-03 07:15] LABS: CT PCR NOT DETECTED (Not Detect.); NG PCR NOT DETECTED (Not Detect.)
[2024-05-03 11:44] LABS: Bacterial Vaginosis PCR NEGATIVE (Negative); Candida Group PCR NOT DETECTED (Not Detect); Candida glab krusei PCR NOT DETECTED (Not Detect); Trichomonas vaginalis PCR NOT DETECTED (Not Detect)
== END 2024-05-02 11:15 | disposition home or self-care (01) ==
LOC: HO.WFDLDS 11:14
PROVIDERS: Visit Provider Nurse Practitioner Family
DX: Z11.3 Encounter for screening for infections with a predominantly sexual mode of transmission (principal); Z20.2 Contact with and (suspected) exposure to infections with a predominantly sexual mode of transmission
CPT/HCPCS: 0352U; 86780; 87389; 87491; 87591

== ENCOUNTER 2024-05-02 11:50 | Outpatient (REF) | payer OTHER, SELFPAY | END 2024-05-02 11:51 | disposition home or self-care (01) | LOC: HO.LAB 11:50 | PROVIDERS: Visit Provider Nurse Practitioner Family | DX: Z13.89 Encounter for screening for other disorder (principal) ==

== ENCOUNTER 2024-05-04 09:08 | Outpatient (AMB) | payer OTHER, SELFPAY ==
--- NOTE | 2024-05-04 09:21 | A.OFFPC_ITS ---
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 Required: No Is last menstrual period known: Yes Last menstrual period: 04/15/24 Post menopausal: No Patient : No Allergies No Known Allergies Allergy (Verified 05/04/24 09:46) Medication List - Last Reconciled 05/04/24 by JOREG Porter- bupropion HCl XL (Wellbutrin XL) 300 mg PO QAM sumatriptan succinate take 1 tab at onset of headache; if no relief, may repeat 1 tab after at least 2 hrs; max = 2 tabs/24 hrs PO topiramate (Topamax) 100 mg PO BEDTIME Tobacco use date assessed: 05/04/24 Dental Screening Dental Screen Date: 05/04/24 Did you have a dental visit in the last 12 months?: Yes Did you have a dental problem in the last 6 months where you did not have access to dental care?: No Was dental information given to patient?: Patient has dentist HPI HPI Comments History of Present Illness Details Chief Complaint Follow-up for Wellbutrin and weight management. History of Present Illness The patient is a 39-year-old female presenting with concerns related to the recent increase in her Wellbutrin dosage and its effects. At the last office visit, her Wellbutrin medication was increased from 150 mg to 300 mg as part of her anxiety management and to support weight loss efforts. Since the dosage adjustment, she reports a reduction in weight from 210 lbs to 206 lbs, which aligns with her goals for slow and steady weight loss. Additionally, the patient reports the emergence of severe constipation, which she attributes to the increase in Wellbutrin. The constipation is described as significant and unprecedented in her medical history, causing tremendous discomfort. This issue arose recently, coinciding with changes in her medication regimen. There are no mentions of prior interventions or complications related to anxiety before this increase. She denies experiencing any episodes of mindless eating, frequent snacking, or changes in her anxiety levels. No abdominal pain is noted aside from constipation-related discomfort. Review of Systems - The patient is actively focused on tavia ght management and anticipates continued weight loss. - Gastrointestinal: Reports severe const ipation. - Psychological: Denies increased anxiet y. Physical Exam Awake alert NAD RRR LS CTAB Mood and affect appropriate Results - Labs, tests, and diagnostics: Negative results for sexually transmitted diseases, bacterial vaginosis, and yeast infections. Plan - Anxiety and Weight Management: Continu e the current regimen of Wellbutrin at 300 mg. Monitor weight and anxiety levels. Prescribe a 90-day refill of Wellbutrin to prevent running out of medication. - Constipation: Recommend beginning Patricia LAX, an [id number] osmotic laxative, to manage constipation. Advise on dosing flexibility to tailor to individual needs, and recommend concurrent hydration. Patient was informed and verbally consented to the use of an ambient scribe for clinic note documentation during this visit. Discussion Notes I discussed with the patient the effects of the recent increase in Wellbutrin, noting improved weight management alongside the emergence of constipation. I recommended MiraLAX as a primary intervention for alleviating constipation, emphasizing dosing flexibility and the importance of adequate fluid intake to maximize efficacy. I guided her through the process of adjusting the MiraLAX dose based on her individual response. I addressed continuity in Wellbutrin coverage by preparing a 90-day prescription refill. I advised the patient to monitor her symptoms, particularly the constipation and any vaginal symptoms, and to inform me should they persist. Encouraged monitoring of bladder habits and reinforced vigilance regarding any new irritants or products that might exacerbate symptoms. The patient agreed to follow up in 8 to 12 weeks unless further issues arise. Patient Instructions - Continue the current Wellbutrin 300 mg regimen. - Begin using MiraLAX as advised for con stipation management. - Ensure hydration when taking MiraLAX t o enhance its effects. - Monitor for continued weight loss. - Alert clinician if gastrointestinal or other symptoms persist. - Schedule follow-up in 8 to 12 weeks to reassess weight management and medication effects, sooner [facility] Medical History (Updated 05/04/24 @ 09:54 by Katina Arthur, [facility]-) Obesity (BMI 35.0-39.9 without comorbidity) Body mass index [BMI] 35.0-35.9, adult Lumbar disc disorder Fibromyalgia Migraine Surgical History (Updated 10/12/23 @ 11:46 by Masha Hawkins CMA) History of tubal ligation History of rotator cuff surgery Family History (Updated 10/12/23 @ 11:48 by Masha Hawkins CMA) Father Substance use disorder Mother Asthma Maternal Grandmother Hypertension Sister Asthma Social History (Updated 10/12/23 @ 11:17 by Masha Hawkins CMA) Household Members: Family and Children Household Members Other:: 1 daughter, 1 son, mother, 3 dogs Housing: House Are you a primary customer care voice consultant to a significant other at home: No Do you presently have visiting nurse or other home services: No 75 years or older and lives alone: No Alcohol intake: current Alcohol intake frequency: holidays/special occasions only Patient Tobacco Use Status: Former Tobacco user Cigarette Packs Per Day: 1 Years Smoked: 16 e-Cigarette/Vaping Use: Currently Using service: No Current occupational status: employed Current occupational exposures/hazards: No Sexual orientation: Straight/Heterosexual Gender identity: Female Cognitive needs: Yes (concern for memory) Hearing needs: Yes (L ear hearing concern) Vision needs: No Female Reproductive History Menstrual Date of last menstrual period: 04/15/24 Questionnaire PHQ-9 Over the last 2 weeks, how often have you been bothered by any of the following problems? 1. Little interest or pleasure in doing things: several days 2. Feeling down, depressed, or hopeless: not at all 3. Trouble falling or staying asleep, or sleeping too much: not at all 4. Feeling tired or having little energy: several days 5. Poor appetite or overeating: not at all 6. Feeling bad about yourself - or that you are a failure or have let yourself or your family down: not at all 7. Trouble concentrating on things, such as reading the newspaper or watching television: nearly every day 8. Moving or speaking so slowly that other people could have noticed. Or the opposite - being so fidgety or restless that you have been moving around a lot more than usual: not at all 9. Thoughts that you would be better off or of hurting yourself in some way: not at all Total score: 5 16852 - PHQ-9 Billing: Yes Source: Developed by Drs. Kalen Arredondo, Florence Lebron, Adrian Shook and colleagues, with an educational brian from [employer]. Thrive Questionnaire Date Thrive assessed: 05/04/24 I am a: Patient What is your living situation today?: I have a steady place to live Within the past 12 months, did the food you bought not last and you didn't have the money to get more?: Never true Within the past 12 months, did you worry whether your food would run out before you got money to buy more?: Never true Do you have trouble paying for medicines?: No Do you have trouble getting transportation to medical appointments?: No Do you have trouble paying your heating and electricity bill?: No Do you have trouble taking care of your child, family member or friend?: No Do you have trouble with day-to-day activities such as bathing, preparing meals, shopping, managing finances, etc.?: No Are you currently unemployed and looking for a job?: No Are you interested in more education?: No Please select the resources that you would like help with: None Currently or been in a relationship where the following occur: No concerns rep orted THRIVE Score: 0 AUDIT C Alcohol Use Questionnaire (AUDIT-C) 1. How often do you have a drink containing alcohol?: Never Total Score: 0 Score Reviewed/Action Taken: Yes RANCHO-7 AMB Questionnaire RANCHO-7 Date RANCHO - 7 assessed: 05/04/24 Feeling nervous, anxious, or on edge: 0 = Not at all Not being able to stop or control worryin = Not at all Worrying too much about different things: 0 = Not at all Trouble relaxin = Not at all Being so restless that it is hard to sit still: 0 = Not at all Becoming easily annoyed or irritable: 0 = Not at all Feeling afraid as if something awful might happen: 0 = Not at all Total RANCHO-7 score (0-4 normal; 5-9 mild; 10-14 moderate; 15-21 severe): 0 Source: Developed by Drs. Kalen Arredondo, Florence Lebron, Adrian spencer nd colleagues, with an educational brian from [employer]. RANCHO-7 Assessment Billing RANCHO-7 Assessment Tool: RANCHO-7 Assessment 95107 Physical exam (Primary Care) Vital Signs: Last Vital Signs Temp 97.2 F 05/04/24 09:25 Pulse 86 05/04/24 09:25 Resp 16 05/04/24 09:25 BP 113/68 05/04/24 09:25 Pulse Ox 99 05/04/24 09:25 Oxygen Delivery Method Room Air 05/04/24 09:25 BMI result Body Mass Index 29.3 Tobacco/Smoking Status: Tobacco use Status Tobacco use date assessed 05/04/24 05/04/24 09:30 Patient Tobacco Use Status Former Tobacco user 05/04/24 09:22 e-Cigarette/Vaping Use Currently Using 05/04/24 09:22 PHQ-9: PHQ-9 Score PHQ-9: Total score 5 05/04/24 09:30 Thrive Assessment: Date of Thrive Assessment Date Thrive assessed 05/04/24 05/04/24 09:30 Currently or been in a relationship where the following occur: No concerns reported Office Procedures Office Procedure Misc Details: G0449 15 MIN OBESITY EDU PROVIDED Office Procedure Billing Code: AMB Procedure Billing Code Coding Level of Care Code Est Pt Level 4 (05825) Complex EM visit Add On G2211 Diagnoses RANCHO (generalized anxiety disorder) F41.1 BMI 34.0-34.9,adult Z68.34 Obesity (BMI 30.0-34.9) E66.9 CPT Codes Office Procedure - Office Procedure Billing Code: AMB Procedure Billing Code ([id number]) Additional Codes RANCHO-7 Assessment Billing - RANCHO-7 Assessment Tool: RANCHO-7 Assessment 92046 ([id number]) PHQ-9 - 29170 - PHQ-9 Billing: Yes ([id number]) Assessment & Plan Assessment & Plan (1) RANCHO (generalized anxiety disorder): Code(s): F41.1 - Generalized anxiety disorder Category: Medical (2) BMI 34.0-34.9,adult: Code(s): Z68.34 - Body mass index [BMI] 34.0-34.9, adult Category: Medical (3) Obesity (BMI 30.0-34.9): Code(s): E66.9 - Obesity, unspecified Category: Medical Plan: . Plan . Medications: Refilled bupropion HCl XL (Wellbutrin XL) 300 mg PO QAM 90 tabs 1RF
[2024-05-04 09:25] VITALS: BP 113/68; PULSE 86; RESP 16; TEMP 36.2; O2SAT 99; BMI 29.3
== END 2024-05-04 09:52 | disposition home or self-care (01) ==
PROVIDERS: PCP Nurse Practitioner Family; Visit Provider Nurse Practitioner Family
DX: F41.1 Generalized anxiety disorder (principal); Z68.34 Body mass index [BMI] 34.0-34.9, adult; E66.9 Obesity, unspecified

== ENCOUNTER → 2024-05-04 09:08 | Outpatient (BNVA) | payer OTHER, SELFPAY | PROVIDERS: PCP Nurse Practitioner Family; Visit Provider Nurse Practitioner Family | DX: F41.1 Generalized anxiety disorder (principal); E66.9 Obesity, unspecified; Z68.34 Body mass index [BMI] 34.0-34.9, adult | CPT/HCPCS: 96127 ==

== ENCOUNTER 2024-05-16 12:49 | Outpatient (AMB) | payer OTHER, SELFPAY ==
--- NOTE | 2024-05-16 12:52 | MHC.OFFWIV ---
Intake Vital Signs 05/16/24 12:56 Height 5 ft 5 in Weight 207 lb BMI 34.4 BP 114/68 Blood Pressure Location Lt brachial Position Sitting Respiration 13 Pulse 100 Pulse Source Pulse Oximeter Temp 97.0 F Temp Source Skin Pulse Oximetry (%) 98 Oxygen Delivery Method Room Air Intake Visit Reasons: sore threat, difficult to breath, congestion Intake Note: Patient complaining of coughing, sob, headaches, bodyaches, and tickle on the throat x 3days. Patient tested herself for covid at home and it was negative. Patient Tobacco Use Status: Former Tobacco user Allergies No Known Allergies Allergy (Verified 05/16/24 13:10) Medication List - Last Reconciled 05/16/24 by Katina Arthur, SOFTWARE APPLICATIONS ENGINEER- bupropion HCl XL (Wellbutrin XL) 300 mg PO QAM sumatriptan succinate take 1 tab at onset of headache; if no relief, may repeat 1 tab after at least 2 hrs; max = 2 tabs/24 hrs PO topiramate (Topamax) 100 mg PO BEDTIME Do you need a note to return to daycare/school/sports/work: Yes HPI HPI Comments History of Present Illness Details History of Present Illness The patient is a 39-year-old female presenting with acute upper respiratory symptoms. She reports that the symptoms began on Tuesday evening, starting with a tickle in her throat while she was at work. By that night, her voice was nearly gone, and she experienced increasing congestion and coughing. The patient noted a significant escalation of symptoms by Tuesday, with her voice becoming completely gone and developing a persistent cough. She also experienced thick, green nasal discharge, significant headaches, and myalgia. These symptoms have prevented her from attending work since Tuesday. The patient has conducted two COVID-19 tests, both of which returned negative results on Tuesday night and Tuesday morning. She denies sore throat, painful swallowing, and fever. There is, however, reported decreased head clarity, ear pain, and significant facial congestion. Physical Exam General: Awake, alert. No apparent distress, mildly ill appearing Eyes: Sclera and conjunctiva clear bilaterally Nose: Nares patent, turbinates within normal limits, lots of mucoid discharge Ears: Tympanic membranes intact and clear bilaterally, lots of congestion behind both ears, ears hurt Throat: Moist mucosa membrane, pharynx within normal limits, throat looks okay, a tiny bit red, but more from coughing Cardiovascular: Regular rate and rhythm Respiratory: Clear to auscultation bilaterally, diminished breath sounds, not moving a ton of air Results - COVID-19 tests: Negative - Proposed COVID, Influenza, and RSV testing PENDING Plan - Upper Respiratory Infection: Order COVID-19, Influenza, and RSV swab to confirm viral etiology. Prescribe prednisone for inflammation and an inhaler to aid airway patency. Provide an anti-tussive medication for cough management. - Sinus Congestion: Continue supportive care with inhaled medication. Monitor for any bacterial progression that may necessitate antibiotics if symptoms persist beyond 7-10 days. - Cough: Manage with prescribed anti-tussive medication and inhaler. Patient was informed and verbally consented to the use of an ambient scribe for clinic note documentation during this visit. Discussion Notes We discussed the likely viral etiology of the patient's symptoms. I explained the current management plan, which includes steroid therapy and an inhaler to address airway inflammation and congestion. The patient expressed a preference to avoid antibiotics unless clearly necessary. We agreed that a swab test would be beneficial for confirming the presence of influenza or RSV, which would alter management if positive. I addressed the need to continue monitoring symptoms, especially if they extend beyond ten days, at which point bacterial infection might be considered. The patient voiced understanding of these instructions and plans to follow through with the outlined care. Patient Instructions - Start prednisone therapy, ensuring it is taken with food. - Use the prescribed inhaler and anti-tussive medication as directed. - Await results from the COVID, Influenza, and RSV swab which should appear on the patient portal. Javier Rx tamlflu if flu +, if covid or rsv, supportive care only. - Stay off work until cleared, as documented in the out-of-work note. - Monitor for symptom progression or change, particularly for persistent respiratory symptoms beyond ten days. This note is constructed using voice recognition software. While every effort has been made to ensure accuracy in electrical unit rebuilder, still errors may have been included Sometimes, these errors may affect the content or meaning of the given sentence . Total time spent caring for the patient today was 30 minutes. This includes time spent before the visit reviewing the chart, time spent during the visit, and time spent after the visit on documentation [facility] Medical History (Updated 05/04/24 @ 09:54 by Katina Arthur [facility]) Obesity (BMI 35.0-39.9 without comorbidity) Body mass index [BMI] 35.0-35.9, adult Lumbar disc disorder Fibromyalgia Migraine Surgical History (Updated 10/12/23 @ 11:46 by Masha Hawkins CMA) History of tubal ligation History of rotator cuff surgery Family History (Updated 10/12/23 @ 11:48 by Masha Hawkins CMA) Father Substance use disorder Mother Asthma Maternal Grandmother Hypertension Sister Asthma Social History (Updated 10/12/23 @ 11:17 by Masha Hawkins CMA) Household Members: Family and Children Household Members Other:: 1 daughter, 1 son, mother, 3 dogs Housing: House Are you a primary care management associate to a significant other at home: No Do you presently have visiting nurse or other home services: No 75 years or older and lives alone: No Alcohol intake: current Alcohol intake frequency: holidays/special occasions only Patient Tobacco Use Status: Former Tobacco user Cigarette Packs Per Day: 1 Years Smoked: 16 e-Cigarette/Vaping Use: Currently Using service: No Current occupational status: employed Current occupational exposures/hazards: No Sexual orientation: Straight/Heterosexual Gender identity: Female Cognitive needs: Yes (concern for memory) Hearing needs: Yes (L ear hearing concern) Vision needs: No Physical Exam Vital Signs: Last Vital Signs Temp 97.0 F 05/16/24 12:56 Pulse 100 05/16/24 12:56 Resp 13 05/16/24 12:56 BP 114/68 05/16/24 12:56 Pulse Ox 98 05/16/24 12:56 Oxygen Delivery Method Room Air 05/16/24 12:56 BMI result Body Mass Index 34.4 Assessment & Plan Assessment & Plan (1) Flu-like symptoms: Code(s): R68.89 - Other general symptoms and signs Plan . Orders: Orders SARS-CoV2/FLU/RSV Today R09.89 - Other specified symptoms and signs involving the circulatory and respiratory systems Medications: New benzonatate 100 mg PO TID 10 days PRN 30 caps 1RF cough albuterol sulfate 90 mcg/actuation 2 puffs inhalation Q4-6H 30 days PRN 8.5 grams 0RF shortness of breath or wheezing prednisone 20 mg PO DAILY 5 tabs 0RF Coding Level of Care Code Est Pt Level 4 (42288) Diagnoses Flu-like symptoms R68.89
[2024-05-16 12:56] VITALS: BP 114/68; PULSE 100; RESP 13; TEMP 36.1; O2SAT 98; BMI 34.4
== END 2024-05-16 15:09 | disposition home or self-care (01) ==
PROVIDERS: PCP Nurse Practitioner Family; Visit Provider Nurse Practitioner Family
DX: R68.89 Other general symptoms and signs (principal)

== ENCOUNTER → 2024-05-16 12:49 | Outpatient (BNVA) | payer OTHER, SELFPAY | PROVIDERS: PCP Nurse Practitioner Family; Visit Provider Nurse Practitioner Family ==

== ENCOUNTER 2024-05-16 14:11 | Outpatient (REF) | payer OTHER, SELFPAY ==
[2024-05-16 15:15] LABS: Influenza A PCR NEGATIVE (Negative); Influenza B PCR NEGATIVE (Negative); Resp Syncy Virus RNA Qual PCR NEGATIVE (Negative); SARS COV2 PCR INHOUSE NEGATIVE (Negative)
== END 2024-05-16 14:12 | disposition home or self-care (01) ==
LOC: HO.LNP 14:11
PROVIDERS: Visit Provider Nurse Practitioner Family
DX: J06.9 Acute upper respiratory infection, unspecified (principal)
CPT/HCPCS: 0241U